=== PATIENT | male | born 1970 | race Caucasian/White ===

== ENCOUNTER 2020-10-03 19:54 | Emergency (ER) | payer BC, OTHER ==
[~2020-10-03] VITALS: Ht 188 cm; Wt 172.0 kg
[2020-10-03] MEDS ORDERED: IBUPROFEN 400MG TABLET PO ONE (20:30)
[2020-10-03 21:22] VITALS: BP 148/99
== END 2020-10-03 21:22 | disposition home or self-care (01) ==
LOC: ER 19:54
DX: M54.42 Lumbago with sciatica, left side (principal)
CPT/HCPCS: 99281